=== PATIENT | female | born 1985 | race Caucasian/White ===

== ENCOUNTER → 2016-09-09 | Outpatient (REF) | payer OTHER | LOC: M SFHCLERA 12:10 | PROVIDERS: ATTEND Nurse Practitioner Family | DX: R30.0 Dysuria (principal) ==

== ENCOUNTER → 2016-09-17 | Outpatient (CLI) | payer OTHER ==
--- NOTE | 2016-09-18 04:54 | REP ---
Clinical: Anatomical evaluation. Comparison: None . Findings: Examination demonstrates a single live intrauterine in transverse (head towards the maternal right side) presentation. motion is identified by technologist. Placenta is noted anteriorly and grade zero without evidence for placenta previa or abruption. Amniotic fluid volume is normal. Cervix measures 3.5 cm in length and appears closed. No evidence for nuchal cord. Gestational age by LMP 19 weeks 4 days with MELISSA 02/07/2017 . Gestational age by current measurements 20 weeks 0 days with MELISSA 02/04/2017 . FHR equals 144 beats per minute. BPD 4.7 cm 20 weeks 2 days' HC 17.2 cm 19 weeks 6 days AC 15.1 cm 20 weeks 2 days FL 3.0 cm 19 weeks 2 days HL 3.1 cm 20 weeks 1 day HC/AC ratio 1.14 Estimated weight 318 grams ( 56th percentile). Anatomical assessment demonstrates normal structures including cranium, choroid plexus, cavum, cerebellum/posterior fossa, facial features, lungs, four-chamber heart/ventricular outflow tracts, diaphragm, stomach, cord insertion/three-vessel cord, kidneys/bladder, spine, and extremities. Impression: 1. Single live intrauterine in transverse lie demonstrating appropriate interval growth. 2. Anatomical assessment is complete and normal. Signed by Elliott Noland MD 09/18/2016 04:46 A
== END ==
LOC: M RAD 16:07
PROVIDERS: ATTEND Specialist
DX: Z34.82 Encounter for supervision of other normal pregnancy, second trimester (principal)

== ENCOUNTER → 2016-10-27 | Outpatient (REF) | payer OTHER | LOC: M SFHCLERA 11:18 | PROVIDERS: ATTEND Nurse Practitioner Family | DX: J02.9 Acute pharyngitis, unspecified (principal) ==

== ENCOUNTER → 2016-11-07 | Outpatient (CLI) | payer OTHER ==
[2016-11-07 15:50] LABS: MEAN CORPUSCULAR HEMOGLOBIN 31.6 pg (27.0-33.0); MEAN CORPUSCULAR HGB CONC 32.9 g/dl (32.0-36.5); RED CELL DISTRIBUTION WIDTH 13.4 % (11.5-14.5); WHITE BLOOD COUNT 12.9 K/mm3 (4.0-10.0)
== END ==
LOC: M LAB 14:11
PROVIDERS: ATTEND Obstetrics & Gynecology
DX: Z34.82 Encounter for supervision of other normal pregnancy, second trimester (principal)

== ENCOUNTER → 2016-12-13 | Outpatient (CLI) | payer OTHER | LOC: M LAB 06:50 | PROVIDERS: ATTEND Obstetrics & Gynecology | DX: Z34.82 Encounter for supervision of other normal pregnancy, second trimester (principal) ==

== ENCOUNTER → 2024-06-24 | Outpatient (CLI) | payer OTHER | LOC: M WHC 08:46 | PROVIDERS: ATTEND Obstetrics & Gynecology Obstetrics | DX: N63.10 Unspecified lump in the right breast, unspecified quadrant (principal); Z98.82 Breast implant status | CPT/HCPCS: 77066; G0279 ==